=== PATIENT | female | born 1985 | race Caucasian/White ===

== ENCOUNTER 2022-10-22 18:29 | Emergency (ER) | payer BC, SELFPAY ==
[2022-10-22 18:38] VITALS: BP 118/73; PULSE 111; RESP 18; TEMP 35.7; O2SAT 99
--- NOTE | 2022-10-22 19:46 | ED.URI ---
HPI - URI/Sore Throat General Chief Complaint: Upper Respiratory Infection Stated Complaint: Sore Thorat/Fever Time Seen by Provider: 10/22/22 19:40 History of Present Illness HPI Narrative: 36-year-old female presented for complaints of sore throat, lymph node swelling, and fever over the last 2 days. She denies sinus congestion, shortness of breath, nausea vomiting, diarrhea. She is taking Tylenol and ibuprofen for fever without significant relief. Related Data Allergies Allergy/AdvReac Type Severity Reaction Status Date / Time No Known Allergies Allergy Verified 10/22/22 18:40 Review of Systems Review of Systems: ROS per HPI Exam Narrative: GENERAL: Ill-appearing, no acute distress. EYES: conjunctivae clear ENT: Mucous membranes moist. TM pearly johnson with normal light reflex bilaterally; no tragal tenderness. Hoarse voice. Oropharynx erythematous, Tonsils enlarged 2+ erythematous with exudate. No drooling, no trismus, uvula midline. No tripod positioning, hot potato voice, or soft palate swelling. NECK: Supple. Bilateral anterior cervical lymphadenopathy CHEST: Clear to auscultation, breath sounds equal. No respiratory distress, speaks in full sentences. HEART: Regular rate and rhythm. No murmur heard. SKIN: Warm, dry, no rash. NEURO: Alert and oriented x3. Course Course Emergency Course: Patient is aware of diagnosis, understands and agrees to treatment plan. Anticipatory guidance given. Patient agrees to follow-up as directed and is aware of reasons to seek care at the emergency department. Portions of this record may have been created with voice recognition software Level of Care: Express Care Visit Vital Signs Vital signs: Vital Signs Temperature 96.3 F L 10/22/22 18:38 Pulse Rate 111 H 10/22/22 18:38 Respiratory Rate 18 10/22/22 18:38 Blood Pressure 118/73 10/22/22 18:38 Pulse Oximetry 99 10/22/22 18:38 Oxygen Delivery Room Air 10/22/22 18:38 Temperature 96.3 F L 10/22/22 18:38 Pulse Rate 111 H 10/22/22 18:38 Respiratory Rate 18 10/22/22 18:38 Blood Pressure 118/73 10/22/22 18:38 Pulse Oximetry 99 10/22/22 18:38 Oxygen Delivery Room Air 10/22/22 18:38 MDM - URI/Sore Throat MDM Narrative Medical decision making narrative: due to lack of resources, rapid strep test unable to be performed at this facility. Will treat based on PE. Due to amoxicillin shortage will give Z-Easton. Advise supportive treatments. Patient is appropriate for outpatient treatment and follow-up. Differential Diagnosis Differential diagnosis: Likely upper respiratory infection, viral infection and pharyngitis Discharge Plan Discharge Clinical Impression: Pharyngitis Patient Disposition: Home, Self-Care Condition: Stable Instructions: Antibiotic Form, Strep Throat (ED) Additional Instructions: - Take the antibiotic as directed. Fever and sore throat typically resolve within one to three days. Most patients can return to work, school, or daycare after 24 hours of antibiotic therapy, provided you are fever free and otherwise well. -Eat and drink things that are easy to swallow, like soft foods, cool liquids, tea with honey, or popsicles . -Salt water gargles and/or may use topical anesthetic ( Chloraseptic spray) or lozenges to relieve dryness or throat pain -Alternate Tylenol and ibuprofen as needed for pain and fever as directed. -Frequent hand washing or hand casino floor person is one of the best ways to prevent spread of infection. Throw away the toothbrush after 24hours of antibiotic. -Follow up with primary care provider in 2-3 days if condition is not improving -Go to the ER if you have trouble breathing, cannot drink enough fluids, have muffled voice or drooling, difficulty opening your mouth, or severe swelling. Prescriptions: New azithromycin [Zithromax Z-Easton] 250 mg tablet See Rx Instructions .ROUTE .COMPLEX Qty: 6 0RF Rx Instructions: For
== END 2022-10-22 19:58 | disposition home or self-care (01) ==
PROVIDERS: Emergency Provider Nurse Practitioner Family; PCP Family Medicine
DX: J02.9 Acute pharyngitis, unspecified (principal)
CPT/HCPCS: 99213; G0463